=== PATIENT | male | born 1955 | race African-American/Black ===

== ENCOUNTER 2019-02-11 21:10 | Emergency (ER) | payer MEDICARE, OTHER ==
[~2019-02-11] VITALS: Ht 175.3 cm; Wt 89.8 kg
--- NOTE | 2019-02-11 21:15 | NUR ---
ED Nurse Note: Patient walked into ED after stepping on a jose nail for 1 day, patient presents with a healled wound located on the bottom left foot, denies any pain, patient is alert and oriented x4, ambulatory with a steady gait, VSS
[2019-02-11] MEDS ORDERED: CIPROFLOXACIN500 M2 ORAL (21:24)
--- NOTE | 2019-02-11 21:24 | Emergency Room Report ---
History of Present Illness General Chief Complaint: Lower Extremity Injury Source: Patient Present Illness [facility] This is a 63-year-old male with no past medical history. He presents with chief complaint of left foot injury. 2 days ago he stepped on a jose nail while wearing sneakers. He complained of a puncture wound to the lateral aspect of his left foot. No fever chills but no nausea no vomiting. Tenderness with walking. Pain is minimal. No drainage. No redness. Tetanus not up-to-date. Allergies: Coded Allergies: No Known Allergies (Verified Allergy, Unknown, 10/16/10) Patient History Past Medical History: see triage record, old chart reviewed Past Surgical History: none Pertinent Family History: none Social History: Denies: smoking Immunizations: other Reviewed Nursing Documentation: PMH: Agreed; PSxH: Agreed Nursing Documentation-PMH Past Medical History: No Stated History Review of Systems Eye: Denies: eye pain, blurred vision ENT: Denies: ear pain, nose congestion, throat swelling Respiratory: Denies: cough, shortness of breath Cardiovascular: Denies: chest pain, palpitations Gastrointestinal: Denies: abdominal pain, diarrhea, nausea, vomiting Musculoskeletal: Denies: back pain, joint pain Skin: Denies: rash Neurological: Denies: headache, numbness Endocrine: Denies: increased thirst, increased urine Hematologic/Lymphatic: Denies: easy bruising All Other Systems: negative except mentioned in HPI Physical Exam Vital Signs Date Time Temp Pulse Resp B/P (MAP) Pulse Ox O2 Delivery O2 Flow Rate FiO2 02/11/19 21:12 98.2 57 16 178/89 (118) 98 Room Air vitals with high blood pressure Sp02 EP Interpretation: reviewed, normal General Appearance: well appearing, no apparent distress, alert Head: normocephalic, atraumatic Eyes: bilateral eye PERRL, bilateral eye EOMI ENT: hearing grossly normal, normal pharynx Neck: full range of motion, supple, no meningismus Respiratory: chest non-tender, lungs clear, normal breath sounds Cardiovascular #1: regular rate, rhythm, no murmur Gastrointestinal: normal bowel sounds, non tender, no mass, no organomegaly, no bruit, non-distended Musculoskeletal: back normal, gait/station normal, normal range of motion, other - Left foot: pinpoint puncture wound to lateral aspet of left foot at base of 5th toe. no redness. no crepitance Psychiatric: mood/affect normal Skin: warm/dry Medical Decision Making Diagnostic Impression: Primary Impression: Puncture wound of skin from metal nail Additional Impression: Hypertension Qualified Codes: I10 - Essential (primary) hypertension ER Course Patient with a puncture wound from a nail. Increased risk for infection but is been 2 days and he has not shown any evidence of infection. No evidence of any foreign body. No crepitus. Tetanus updated. Last Vital Signs Date Time Temp Pulse Resp B/P (MAP) Pulse Ox O2 Delivery O2 Flow Rate FiO2 02/11/19 21:12 98.2 57 16 178/89 (118) 98 Room Air Status: unchanged Disposition: HOME, SELF-CARE Condition: Stable Scripts Ciprofloxacin Hcl* (CIPROFLOXACIN HCL*) 500 Mg Tablet 500 MG ORAL Q12H, #14 TAB 0 Refills Prov: Demarcus Dumont MD 02/11/19 Additional Instructions: Keep wound clean. First with hydrogen peroxide and apply antibiotic ointment. Follow-up with your doctor in 7 days for recheck. Recheck on your blood pressure also. Return if worse. Demarcus Dumont MD Feb 11, 2019 21:24
[2019-02-11 21:30] VITALS: BP 178/89
[2019-02-11] MEDS ORDERED: Tetanus/Diptheria/Pertussis IM ONE (21:30)
--- NOTE | 2019-02-11 21:30 | NUR ---
ER DISCHARGE NOTE: Patient is cleared to be discharged per ERMD, pt is aox4, on room air, with stable vital signs. pt was given dc and prescription instructions, pt was able to verbalize understanding, pt id band removed without complications. pt is able to ambulate with steady gait. pt took all belongings.
== END 2019-02-11 21:30 | disposition home or self-care (01) ==
LOC: EMR 21:19
DX: S91.332A Puncture wound without foreign body, left foot, initial encounter (principal); W22.8XXA Striking against or struck by other objects, initial encounter; Y92.9 Unspecified place or not applicable; I10 Essential (primary) hypertension; Z23 Encounter for immunization
CPT/HCPCS: 90471; 90715; 99282